=== PATIENT | male | born 1980 | race Caucasian/White ===

== ENCOUNTER 2017-10-10 01:10 | Observation (INO) | payer MEDICAID ==
[2017-10-10] VITALS (8 sets, daily range): BP systolic 107–135; BP diastolic 57–84; PULSE 55–63; RESP 16–19; TEMP 97.9–98.6; O2SAT 98–99
[~2017-10-10] VITALS: Ht 188 cm; Wt 98.2 kg
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
[2017-10-10 02:03] LABS: AUTOMATED NEUTROPHIL # 4.3 TH/MM3 (1.8-7.7); BASOPHIL # 0.1 TH/MM3 (0-0.2); BASOPHIL % 0.9 % (0.0-2.0); EOSINOPHIL # 0.2 TH/MM3 (0-0.4); HEMATOCRIT 40.1 % (39.0-51.0); HEMOGLOBIN 13.7 GM/DL (13.0-17.0); LYMPH % 35.4 % (9.0-44.0); LYMPHOCYTE # 2.9 TH/MM3 (1.0-4.8); MEAN CELL VOLUME 92.3 FL (80.0-100.0); MEAN CORPUSCULAR HEMOGLOBIN 31.6 PG (27.0-34.0); MEAN CORPUSCULAR HGB CONC 34.2 % (32.0-36.0); MEAN PLATELET VOLUME 9.6 FL (7.0-11.0); MONO % 9.1 % (0.0-8.0); MONOCYTE # 0.7 TH/MM3 (0-0.9); NEUT % 52.6 % (16.0-70.0); PLATELET COUNT 189 TH/MM3 (150-450); RED BLOOD COUNT 4.34 MIL/MM3 (4.50-5.90); RED CELL DISTRIBUTION WIDTH 13.9 % (11.6-17.2); WHITE BLOOD COUNT 8.1 TH/MM3 (4.0-11.0)
[2017-10-10 02:26] LABS: ALKALINE PHOSPHATASE 63 U/L (45-117); TOTAL BILIRUBIN ADULT 0.6 MG/DL (0.2-1.0); TOTAL PROTEIN 7.2 GM/DL (6.4-8.2)
[2017-10-10] MEDS ORDERED: oxyCODONE/ACETAMINOPHEN 5 MG/325 MG TAB PO ONE (02:30)
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
[2017-10-10 02:38] LABS: ALBUMIN 3.8 GM/DL (3.4-5.0); ALT (GPT) 29 U/L (12-78); AST (GOT) 29 U/L (15-37); BICARBONATE 22.1 MEQ/L (21.0-32.0); BLOOD UREA NITROGEN 22 MG/DL (7-18); CALCIUM 8.6 MG/DL (8.5-10.1); CHLORIDE 112 MEQ/L (98-107); CREATININE 1.12 MG/DL (0.60-1.30); GLOMERULAR FILTRATION RATE 73 ML/MIN (>89); GLUCOSE,RANDOM 82 MG/DL (74-106); SODIUM (NA) 143 MEQ/L (136-145)
[2017-10-10] MEDS ORDERED: METOCLOPRAMIDE HCL 10 MG/2 ML VIAL IV PUSH PRN (05:45)
[2017-10-10] MEDS ORDERED: BISACODYL 10 MG SUPP RECTAL PRN (05:45)
[2017-10-10] MEDS ORDERED: MAGNESIUM HYDROXIDE SUSP 30 ML CUP PO PRN (05:45)
[2017-10-10] MEDS ORDERED: SENNOSIDES 8.6 MG TAB PO PRN (05:45)
[2017-10-10] MEDS ORDERED: ACETAMINOPHEN/HYDROcodone 325 MG/10 MG TAB PO PRN (05:45)
[2017-10-10] MEDS ORDERED: LACTULOSE SYRUP 20 GM/30 ML CUP PO PRN (05:45)
[2017-10-10] MEDS ORDERED: SODIUM CHLORIDE 0.9% FLUSH 10 ML FLUSH IV FLUSH PRN (05:45)
[2017-10-10] MEDS ORDERED: ACETAMINOPHEN/HYDROcodone 325 MG/5 MG TAB PO PRN (05:45)
[2017-10-10] MEDS: SODIUM CHLOR 0.9% 1000 ML INJ 1,000 ML IV SCH ×2 (06:51→15:35)
[2017-10-10] MEDS ORDERED: IOHEXOL 350 MG/ML 10 ML VIAL (for RAD DIAG) IVCONTRAST ONE (07:00)
[2017-10-10] MEDS: SODIUM CHLORIDE 0.9% FLUSH 10 ML FLUSH IV FLUSH SCH ×2 (08:51→21:26)
[2017-10-10] MEDS: DOCUSATE SODIUM 50 MG/SENNA 8.6 MG TAB PO SCH ×2 (08:51→21:00)
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
[2017-10-10 12:22] LABS: AMORPHOUS SEDIMENT, URINE MANY; BACTERIA, URINE OCC /hpf; BILIRUBIN, URINE NEG (NEG); BLOOD, URINE NEG (NEG); GLUCOSE,URINE NEG (NEG); HYALINE CAST, URINE 3 /lpf (RARE); KETONE, URINE NEG (NEG); MUCUS URINE MANY /lpf (OCC); NITRITE,URINE NEG (NEG); URINE COLOR YELLOW (YELLW/STRAW); URINE LEUKOCYTE ESTERASE NEG (NEG)
--- NOTE | 2017-10-10 13:56 | EKG ---
Date Performed: 10/10/2017 Time Performed: 05:06:01 PTAGE: 36 years EKG: Sinus rhythm POSSIBLE LEFT ATRIAL ENLARGEMENT BORDERLINE ECG NO PREVIOUS TRACING DOCTOR: Glenn Machado Interpretating Date/Time 10/10/2017 13:47:16
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
--- NOTE | 2017-10-10 16:21 | ECHRPT ---
Indication: CARDIOMYOPATHY CONCLUSIONS The transthoracic study is normal by two-dimensional, color flow imaging and Doppler interrogation. BP: / HR: Rhythm: MEASUREMENTS (Male / Female) Normal Values Technical Quality: 2D ECHO LV Diastolic Diameter PLAX 4.5 cm 4.2 - 5.9 / 3.9 - 5.3 cm LV Systolic Diameter PLAX 3.2 cm IVS Diastolic Thickness 0.8 cm 0.6 - 1.0 / 0.6 - 0.9 cm LVPW Diastolic Thickness 0.8 cm 0.6 - 1.0 / 0.6 - 0.9 cm LV Relative Wall Thickness 0.3 RV Internal Dim ED PLAX 2.4 cm DOPPLER Mitral E Point Velocity 107.0 cm/s Mitral A Point Velocity 66.6 cm/s Mitral E to A Ratio 1.6 TR Peak Velocity 149.0 cm/s TR Peak Gradient 8.9 mmHg Right Atrial Pressure 5.0 mmHg Pulmonary Artery Systolic Pressu 13.9 mmHg Right Ventricular Systolic Press 13.9 mmHg FINDINGS LEFT VENTRICLE Normal left ventricular size. Wall thickness is normal. The left ventricular systolic function is normal with an estimated ejection fraction in the range of 60-65%. RIGHT VENTRICLE Normal right ventricular size and systolic function. LEFT ATRIUM The left atrial size is normal. RIGHT ATRIUM The right atrial size is normal. ATRIAL SEPTUM Normal atrial septal thickness without atrial level shunting by limited color doppler interrogation. AORTA The aortic root and proximal ascending aorta are normal in size on limited imaging. MITRAL VALVE Structurally normal mitral valve. No mitral valve stenosis or regurgitation. AORTIC VALVE Trileaflet aortic valve. No aortic valve stenosis or regurgitation. TRICUSPID VALVE Structurally normal tricuspid valve. No tricuspid valve stenosis or regurgitation. PULMONARY VALVE No pulmonary valve regurgitation or stenosis. VESSELS The inferior vena cava is normal in size. PERICARDIUM No pericardial effusion. Rogerio Donnelly MD, FACC (Electronically Signed) Final Date:10 October 2017 16:20
[2017-10-10] MEDS: ACETAMINOPHEN 325 MG TAB PO PRN (16:38)
[2017-10-10] MEDS: NEOMYCIN/POLYMYXIN/BACITRACIN OINT 15 GM TUBE TOPICAL SCH (16:39)
[2017-10-10] MEDS: levETIRAcetam 500 MG TAB PO SCH (20:03)
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
--- NOTE | 2017-10-10 21:46 | MG ---
cc: Ranulfo Truong MD DATE OF STUDY: 10/10/2017. ELECTROENCEPHALOGRAM RECORD NUMBER: [id number]. DESCRIPTION: 8-10 Hz alpha activity, 20-50 microvolts, low-amplitude beta in the frontal channels. Good anterior to posterior gradient. Good EEG variability and reactivity. Good driving to photic stimulation. Occasional eye movement artifact. Fast frequency artifact in the frontal channels. Attenuation slowing of background, transition into drowsy state epoch 63. , although vertex waves, spindle activity transition into stage I and stage II sleep. Sharply contoured theta burst epoch 76, central regions. Sharp, transient left frontocentral region epoch 116. Single lead EKG showing sinus rhythm. INTERPRETATION: Mild nonspecific change left frontocentral region. Otherwise stable, awake, sleep EEG. No active seizure activity. Clinical correlation. MD LULU Lerner/CALLY , 09:16 PM , 09:44 PM
[2017-10-11 00:24] VITALS: BP 103/66; PULSE 58; RESP 16; TEMP 98.6; O2SAT 99
[2017-10-11] MEDS: SODIUM CHLOR 0.9% 1000 ML INJ 1,000 ML IV SCH (01:35)
[2017-10-11 04:41] VITALS: BP 121/60; PULSE 66; RESP 16; TEMP 98.7; O2SAT 94
[2017-10-11] MEDS: ACETAMINOPHEN 325 MG TAB PO PRN (05:27)
[2017-10-11] MEDS: levETIRAcetam 500 MG TAB PO SCH (06:02)
[2017-10-11 06:57] VITALS: PULSE 58
[2017-10-11] MEDS: SODIUM CHLORIDE 0.9% FLUSH 10 ML FLUSH IV FLUSH SCH (08:33)
[2017-10-11] MEDS: DOCUSATE SODIUM 50 MG/SENNA 8.6 MG TAB PO SCH (08:33)
[2017-10-11] MEDS: NEOMYCIN/POLYMYXIN/BACITRACIN OINT 15 GM TUBE TOPICAL SCH (08:36)
[2017-10-11] MEDS ORDERED: LEVE500 PO (08:43)
--- NOTE | 2017-10-11 08:43 | HHI.DCPOC ---
Discharge Care Plan Diagnosis: (1) Syncope (2) Contusion Additional Problems No NSAIDS including but not limited to advil, ibuprofen, aleve, naproxen, naprosyn, goody powders, bc powders. May take tylenol (acetaminophen) NO DRIVING, OR SWIMMING, OR OPERATING HEAVY MACHINERY OR BICYCLING OR WORKING AT HEIGHTS FOR 6 MONTHS. Goals to Promote Your Health * To prevent worsening of your condition and complications * To maintain your health at the optimal level Directions to Meet Your Goals Take your medications as prescribed Follow your dietary instruction Follow activity as directed Keep your appointments as scheduled Take your immunizations and boosters as scheduled If your symptoms worsen call your PCP, if no PCP go to Urgent Care Center or Emergency Room Smoking is Dangerous to Your Health. Avoid second hand smoke Call the 24-hour hour crisis hotline for domestic abuse at Zhen Kellogg MD Oct 11, 2017 08:43
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
[2017-10-11 09:45] VITALS: BP 100/54; PULSE 50; RESP 16; TEMP 98.9; O2SAT 97
--- NOTE | 2017-10-11 10:25 | HHI.PR ---
Subjective Remarks Patient denies having any active headache this morning. Denies any nausea vomiting. Is looking forward to going home. Patient admits that he only drinks about 1 to 2 16 ounce bottles of water daily Objective Vital Signs Date Time Temp Pulse Resp B/P (MAP) Pulse Ox O2 Delivery O2 Flow Rate FiO2 10/11/17 09:45 98.9 50 16 100/54 (69) 97 10/11/17 06:57 58 10/11/17 04:41 98.7 66 16 121/60 (80) 94 10/11/17 00:24 98.6 58 16 103/66 (78) 99 10/10/17 20:29 98.1 62 17 122/57 (78) 98 10/10/17 16:00 98.0 63 19 135/84 (101) 99 10/10/17 12:00 98.6 59 18 124/73 (90) 98 I/O 10/10/17 10/10/17 10/10/17 10/11/17 10/11/17 10/11/17 07:00 15:00 23:00 07:00 15:00 23:00 Intake Total 480 ml Balance 480 ml Intake Oral 480 ml # Voids 3 # Bowel Movements 0 Result Diagram: 10/10/17 0150 10/10/17 0150 Objective Remarks No facial droop, no slurred speech, alert and oriented 3 A/P Assessment and Plan Loss of consciousness/syncope -No recurrence while inpatient. EEG unremarkable. Head MRI unremarkable except for possible findings suggestive of hematoma at best. Neurology following, may consider demyelination etiology. We will discharge the patient on Keppra per neurology's recommendations. CTA studies are negative. Patient was counseled extensively to avoid swimming, bicycling, operating heavy machinery, or driving for the next 6 months unless cleared by neurology. She was also counseled to extensively hydrate himself as has been made clear that he has been under hydrating himself. Patient has met maximal benefit from hospitalization is clinically stable for discharge. Zhen Kellogg MD Oct 11, 2017 10:24
[2017-10-11 10:40] LABS: AUTOMATED NEUTROPHIL # 4.5 TH/MM3 (1.8-7.7); BASOPHIL % 0.6 % (0.0-2.0); EOSINOPHIL # 0.1 TH/MM3 (0-0.4); EOSINOPHIL % 1.4 % (0.0-4.0); HEMOGLOBIN 14.6 GM/DL (13.0-17.0); LYMPH % 31.1 % (9.0-44.0); LYMPHOCYTE # 2.4 TH/MM3 (1.0-4.8); MEAN CELL VOLUME 93.5 FL (80.0-100.0); MEAN CORPUSCULAR HEMOGLOBIN 31.7 PG (27.0-34.0); MEAN CORPUSCULAR HGB CONC 33.9 % (32.0-36.0); MEAN PLATELET VOLUME 9.3 FL (7.0-11.0); MONO % 9.7 % (0.0-8.0); MONOCYTE # 0.8 TH/MM3 (0-0.9); NEUT % 57.2 % (16.0-70.0); PLATELET COUNT 182 TH/MM3 (150-450); RED CELL DISTRIBUTION WIDTH 13.5 % (11.6-17.2); WHITE BLOOD COUNT 7.8 TH/MM3 (4.0-11.0)
[2017-10-11 11:21] LABS: ALBUMIN 3.8 GM/DL (3.4-5.0); ALKALINE PHOSPHATASE 58 U/L (45-117); ALT (GPT) 20 U/L (12-78); AST (GOT) 14 U/L (15-37); BICARBONATE 22.1 MEQ/L (21.0-32.0); BLOOD UREA NITROGEN 11 MG/DL (7-18); CALCIUM 8.5 MG/DL (8.5-10.1); CHLORIDE 111 MEQ/L (98-107); CREATININE 0.88 MG/DL (0.60-1.30); GLOMERULAR FILTRATION RATE 97 ML/MIN (>89); GLUCOSE,RANDOM 69 MG/DL (74-106); SODIUM (NA) 143 MEQ/L (136-145); TOTAL BILIRUBIN ADULT 1.2 MG/DL (0.2-1.0); TOTAL PROTEIN 7.3 GM/DL (6.4-8.2)
== END 2017-10-11 13:45 | disposition home or self-care (01) ==
LOC: NEPE 01:10 → NEDA 05:41 → NEPGCP 07:23
PROVIDERS: ADMIT Hospitalist; ATTEND Hospitalist
DX: R55 Syncope and collapse (principal); M25.522 Pain in left elbow; M54.9 Dorsalgia, unspecified; V18.4XXA Pedal cycle driver injured in noncollision transport accident in traffic accident, initial encounter; Y93.55 Activity, bike riding; F17.200 Nicotine dependence, unspecified, uncomplicated
CPT/HCPCS: 70450; 70496; 70498; 70551; 71045; 72125; 73080; 80053; 80307; 81001; 82607; 84443; 84484; 85025; 85652; 93005; 93306; 95819; 96360; 99285; G0378; J7030; Q9967